=== PATIENT | male | born 1970 | race Caucasian/White ===

== ENCOUNTER 2016-07-06 23:02 | Inpatient (IN) | payer SELFPAY ==
[~2016-07-06] VITALS: Ht 180.3 cm; Wt 71.7 kg
[2016-07-06] MEDS ORDERED: SODIUM CHLORIDE 0.9% 1,000 ML IV SCH (23:22)
[2016-07-06] MEDS ORDERED: SODIUM CHLORIDE 0.9% 1,000 ML IV ONE (23:30)
[2016-07-06] MEDS ORDERED: FAMOTIDINE 20MG/2ML VIAL IV SCH (23:30)
[2016-07-06] MEDS ORDERED: ONDANSETRON HCL 4MG/2ML VIAL IV SCH (23:30)
[2016-07-06 23:53] LABS: EOSINOPHILS % 2.5 % (0.0-5.0); HEMATOCRIT. 22.4 % (42.0-52.0); HEMOGLOBIN. 7.4 g/dL (14.0-18.0); LYMPHOCYTES % 26.4 % (20.0-50.0); MEAN CORPUSCULAR HEMOGLOBIN 29.2 pg (28.0-32.0); MEAN CORPUSCULAR HGB CONC 32.9 g/dL (31.0-37.0); MEAN CORPUSCULAR VOLUME 88.6 fL (80.0-94.0); MEAN PLATELET VOLUME 9.5 fl (7.4-10.4); NEUTROPHILS % 56.1 % (40.0-76.0); PLATELET 56 x1000/uL (130-400); RED BLOOD CELL COUNT 2.53 mill/uL (4.7-6.1); RED CELL DISTRIBUTION WIDTH 14.8 % (11.6-14.6); WHITE BLOOD COUNT 4.3 x1000/uL (4.5-11.0)
[2016-07-06 23:57] LABS: CHLORIDE 100 mEq/L (98-107); INDEX HEMOLYSI 1 (1-3); INDEX ICTERIC 1 (1-4); INDEX LIPEMIC 1 (1-3)
[2016-07-07] VITALS (13 sets, daily range): BP systolic 39–167; BP diastolic 20–109
[2016-07-07 00:05] LABS: ALANINE AMINOTRANSFERASE 38 IU/L (13-61); ALBUMIN 2.2 g/dL (3.4-5.0); ANION GAP 16; BETA HYDROXYBUTYRATE 0.3 mMol/L (0.0-0.3); CALCIUM 7.7 mg/dL (8.5-10.1); CARBON DIOXIDE 22 mEq/L (21-32); UREA NITROGEN BLOOD 13 mg/dL (7-21); eGFR > 60 mL/min (>60)
[2016-07-07] MEDS ORDERED: OCTREOTIDE 1,000 MCG in SODIUM CHLORIDE 0.9% 100 ML IV ONE ×2 (00:30→00:45)
[2016-07-07] MEDS ORDERED: PANTOPRAZOLE 80 MG in SODIUM CHLORIDE 0.9% 100 ML IV SCH ×4 (00:30)
[2016-07-07] MEDS ORDERED: PANTOPRAZOLE SODIUM 40 MG/VIAL IV ONE (00:30)
[2016-07-07] MEDS ORDERED: INSULIN REGULAR (HUMULIN R) 300UNITS/3ML IV ONE (00:45)
[2016-07-07] MEDS ORDERED: ONDANSETRON HCL 4MG/2ML VIAL IV ONE (01:00)
[2016-07-07] MEDS ORDERED: SODIUM CHLORIDE 0.9% 1,000 ML IV SCH (01:06)
[2016-07-07] MEDS ORDERED: ONDANSETRON HCL 4MG/2ML VIAL IV PRN (01:15)
[2016-07-07] MEDS ORDERED: DOPAMINE 400MG PREMIX 250 ML IV PRN (05:11)
[2016-07-07] MEDS: SODIUM CHLORIDE 0.9% 1,000 ML IV SCH ×2 (05:28→08:09)
[2016-07-07 05:30] LABS: HEMATOCRIT. 21.6 % (42.0-52.0); HEMOGLOBIN. 7.1 g/dL (14.0-18.0); MEAN CORPUSCULAR HEMOGLOBIN 29.1 pg (28.0-32.0); MEAN CORPUSCULAR HGB CONC 32.7 g/dL (31.0-37.0); MEAN CORPUSCULAR VOLUME 89.2 fL (80.0-94.0); MEAN PLATELET VOLUME 10.7 fl (7.4-10.4); PLATELET 56 x1000/uL (130-400); RED BLOOD CELL COUNT 2.42 mill/uL (4.7-6.1); RED CELL DISTRIBUTION WIDTH 15.8 % (11.6-14.6); WHITE BLOOD COUNT 9.6 x1000/uL (4.5-11.0)
[2016-07-07 05:56] LABS: ALANINE AMINOTRANSFERASE 22 IU/L (13-61); ALBUMIN 1.3 g/dL (3.4-5.0); ANION GAP 23; CALCIUM 6.3 mg/dL (8.5-10.1); CARBON DIOXIDE 15 mEq/L (21-32); CHLORIDE 110 mEq/L (98-107); INDEX HEMOLYSI 1 (1-3); INDEX ICTERIC 2 (1-4); INDEX LIPEMIC 1 (1-3); UREA NITROGEN BLOOD 17 mg/dL (7-21)
[2016-07-07 06:00] LABS: DIFFERENTIAL COMMENT 1
[2016-07-07] MEDS ORDERED: ETOMIDATE 2MG/ML 10ML VIAL IV ONE (06:00)
[2016-07-07] MEDS ORDERED: SUCCINYLCHOLINE CHLORIDE 200MG/10ML VIAL IV ONE (06:00)
[2016-07-07] MEDS ORDERED: DEXTROSE 50% WATER 50ML SYRINGE IV PRN ×3 (06:00→08:45)
[2016-07-07] MEDS ORDERED: SODIUM BICARBONATE 7.5% 0.9 MEQ/ML 50ML SYR IV ONE (06:00)
[2016-07-07] MEDS ORDERED: ATROPINE SULFATE 1MG/10ML SYR ONE (06:00)
[2016-07-07] MEDS ORDERED: EPINEPHRINE 0.1MG/ML (1:10,000) 10ML SYR ONE (06:00)
[2016-07-07] MEDS ORDERED: CALCIUM CHLORIDE 1GM/10ML SYR IV ONE (06:00)
[2016-07-07 06:01] LABS: eGFR > 60 mL/min (>60)
[2016-07-07 07:43] LABS: GIANT PLATELETS 1+; PLATELET ESTIMATE DECREASED
[2016-07-07] MEDS ORDERED: INSULIN LISPRO 100 UNITS/ML SUBCUT SCH (08:00)
[2016-07-07] MEDS ORDERED: OCTREOTIDE 1,000 MCG in SODIUM CHLORIDE 0.9% 98 ML IV SCH (08:00)
[2016-07-07] MEDS ORDERED: BLOOD SUGAR DIAGNOSTIC STRIP TEST SCH ×2 (08:00→09:00)
[2016-07-07] MEDS ORDERED: INSULIN REGULAR (DRIP) 100 UNITS in SODIUM CHLORIDE 0.9% 99 ML IV SCH (09:00)
[2016-07-07] MEDS ORDERED: FOLIC ACID 1 MG, THIAMINE HCL 100 MG, MVI, ADULT NO.1 10 ML in DEXT 5%/0.45% NACL 1000M... IV SCH ×4 (09:00)
[2016-07-07] MEDS ORDERED: PROPOFOL 10MG/ML 100ML 100 ML IV PRN (09:00)
[2016-07-07] MEDS ORDERED: IPRATROPIUM/ALBUTEROL 0.5-3(2.5)MG/3ML NEB HHN PRN (09:30)
[2016-07-07 09:49] LABS: MEAN CORPUSCULAR HEMOGLOBIN 29.8 pg (28.0-32.0); MEAN CORPUSCULAR HGB CONC 30.5 g/dL (31.0-37.0); MEAN CORPUSCULAR VOLUME 97.6 fL (80.0-94.0); MEAN PLATELET VOLUME 9.6 fl (7.4-10.4); RED BLOOD CELL COUNT 1.25 mill/uL (4.7-6.1); RED CELL DISTRIBUTION WIDTH 16.4 % (11.6-14.6)
[2016-07-07 09:55] LABS: DIFFERENTIAL COMMENT 1; HEMATOCRIT. 12.2 % (42.0-52.0); HEMOGLOBIN. 3.7 g/dL (14.0-18.0); PLATELET 28 x1000/uL (130-400)
[2016-07-07 10:08] LABS: BG FRACTION INSPIRED OXYGEN 100; BG PH < 6.680 (7.350-7.450); BG PO2 47.3 mmHg (75.0-100.0); BG SAMPLE SITE RIGHT BRACHIAL; BG TIDAL VOLUME(mL) 500 mL; BG TOTAL HEMOGLOBIN < 4.5 g/dL (12.0-18.0); BG VENT MODE VENT - A/C; BG VENT RATE 12 set
[2016-07-07 10:14] LABS: AMMONIA 564 uMol/L (<32)
[2016-07-07] MEDS ORDERED: HEPARIN 100 UNITS/1 ML VIAL IVF PRN (10:15)
[2016-07-07 10:19] LABS: LACTIC ACID 21.4 mmol/L (0.4-2.0)
[2016-07-07 10:21] LABS: PROTHROMBIN TIME 20.6 sec
[2016-07-07 10:26] LABS: PARTIAL THROMBOPLASTIN TIME > 200.0 sec (24.0-34.0)
[2016-07-07] MEDS ORDERED: IPRATROPIUM/ALBUTEROL 0.5-3(2.5)MG/3ML NEB HHN SCH (10:30)
[2016-07-07 10:45] LABS: ANISOCYTOSIS 1+
[2016-07-07 10:46] LABS: PLATELET ESTIMATE MARKEDLY DECREASED
[2016-07-07 10:47] LABS: HYPOCHROMASIA 1+
[2016-07-07] MEDS ORDERED: CEFTRIAXONE 2 G in DEXTROSE 5% WATER 50 ML IV SCH (11:00)
== END 2016-07-07 10:12 | disposition expired | DRG 242 ==
LOC: ER 23:15 → SUPCPDRO 07-07 01:03 → MICUSO 07-07 01:36
PROVIDERS: ADMIT Internal Medicine Nephrology; ATTEND Internal Medicine Nephrology
PROC: 5A1935Z Respiratory Ventilation, Less than 24 Consecutive Hours (ICD-10-PCS; principal; 2016-07-07)
PROC: 0BH17EZ Insertion of Endotracheal Airway into Trachea, Via Natural or Artificial Opening (ICD-10-PCS; 2016-07-07)
PROC: 30233N1 Transfusion of Nonautologous Red Blood Cells into Peripheral Vein, Percutaneous Approach (ICD-10-PCS; 2016-07-07)
PROC: 06HM33Z Insertion of Infusion Device into Right Femoral Vein, Percutaneous Approach (ICD-10-PCS; 2016-07-07)
PROC: B54BZZA Ultrasonography of Right Lower Extremity Veins, Guidance (ICD-10-PCS; 2016-07-07)
DX: I85.01 Esophageal varices with bleeding (principal); J96.01 Acute respiratory failure with hypoxia; R57.1 Hypovolemic shock; E43 Unspecified severe protein-calorie malnutrition; E13.10 Other specified diabetes mellitus with ketoacidosis without coma; D69.6 Thrombocytopenia, unspecified; D50.0 Iron deficiency anemia secondary to blood loss (chronic); F10.20 Alcohol dependence, uncomplicated; T51.8X1A Toxic effect of other alcohols, accidental (unintentional), initial encounter; Y92.89 Other specified places as the place of occurrence of the external cause; Z68.22 Body mass index [BMI] 22.0-22.9, adult
CPT/HCPCS: 31500; 36415; 36430; 36569; 36600; 43753; 71010; 77001; 80053; 82010; 82140; 82375; 82962; 83605; 85025; 85610; 85730; 86850; 86900; 86920; 86927; 96365; 96368; 96375; 96376; 99285; A6261; C1725; C1769; C9113; J0171; J0330; J0461; J0696; J1265; J1642; J1815; J2354; J2405; J3411; J3490; J7030; J7040; J7050; J7060; P9016; P9017